=== PATIENT | female | born 1980 | race Caucasian/White ===

== ENCOUNTER 2016-08-12 05:04 | Inpatient (IN) | payer OTHER ==
[~2016-08-12] VITALS: Ht 157.5 cm; Wt 54.4 kg
[~2016-08-12 05:04] MED LIST: ABILIFY15 MG PO; AMBIEN10 MG PO; ATIVAN2 MG PO; CLINDAMYCIN HC150 MG PO; CLINDAMYCIN HC300 MG PO; DEPAKOTE500 MG PO; DIAZEPAM5 MG PO; INDOCIN25 MG PO; METHADONE5 MG PO; NOHOMEMEDS; NORCO 7.5/321 TABLET PO; PAXIL CR37.5 MG PO; PERCOCET 5/31 TABLET PO; PROMETHAZINE HC50 M1 PO; VALIUM10 MG PO; ZOLOFT50 MG PO
[2016-08-12 06:45] LABS: MCH 31.3 PG (29.0-34.0); MCHC 34.6 G/DL (30.0-36.0); MCV 90.5 FL (83-99); MEAN PLAT.VOLUME 10.3 uM^3 (9.5-12.4); PLATELET COUNT 240 K/uL (156-360); RBC DIS.WIDTH-CV 12.6 % (11.8-14.6); RED BLOOD COUNT 4.09 M/uL (3.80-5.20); WHITE BLOOD COUNT 9.3 K/uL (4.1-10.2)
[2016-08-12 07:17] LABS: ANION GAP 10 MEQ/L (2-14); CHLORIDE 103 MEQ/L (99-109); POTASSIUM 3.7 MEQ/L (3.7-5.4); SAMPLE HEMOLYSIS CHECK 0; SAMPLE ICTERIC CHECK 0; SAMPLE LIPEMIA CHECK 0; SODIUM 137 MEQ/L (136-147); TOTAL BILIRUBIN 0.8 MG/DL (0.0-1.0)
[2016-08-12 07:23] LABS: ALKALINE PHOSPHATASE 55 IU/L (3-129); GFR ESTIMATE (CALCULATED) > 59 mL/min/; GLUCOSE 88 mg/dL (70-99); SERUM ETHYL ALCOHOL 10 mg/dL; UREA NITROGEN (BUN) 17 mg/dL (9-23)
[2016-08-12 08:28] LABS: ADD MIUA? NO; BILIRUBIN NEGATIVE; BLOOD NEGATIVE; COLOR DK YELLOW ((YELLOW)); GLUCOSE (STRIP) NEGATIVE; INTERNAL CONTROL VALID? YES; KETONES NEGATIVE; LEUKOCYTES NEGATIVE; NITRITE NEGATIVE; PROTEIN (STRIP) 30; SPECIFIC GRAVITY 1.034 (1.000-1.030); UCUL ADDED? NO
[2016-08-12 08:39] LABS: AMPHETAMINE NEGATIVE (500 ng/mL); BENZODIAZEPINES PRESUMPTIVE POSITIVE (150 ng/mL); COCAINE PRESUMPTIVE POSITIVE (150 ng/mL); METHAMPHETAMINE NEGATIVE (500 ng/mL); OPIATES (MORPHINE) PRESUMPTIVE POSITIVE (100 ng/mL); PHENCYCLIDINE NEGATIVE (25 ng/mL); THC CANNABINOIDS PRESUMPTIVE POSITIVE (50 ng/mL)
[2016-08-12 08:40] LABS: ADD MEDTOX COMMENT Y; BARBITURATES NEGATIVE (200 ng/mL); INTERNAL CONTROLS VALID? YES; METHADONE NEGATIVE (200 ng/mL); OXYCODONE NEGATIVE (100 ng/mL); PROPOXYPHENE NEGATIVE (300 ng/mL); TRICYCLIC ANTIDEPRESSANTS NEGATIVE (300 ng/mL)
[2016-08-12 09:38] LABS: BENZODIAZEPINES QUANT VALUE 0 NG/ML
[2016-08-12 09:41] LABS: BENZODIAZEPINES, URINE SCREEN Negative (200 ng/mL)
[2016-08-12] MEDS ORDERED: ROBITUSSIN100 MG/5 M PO (10:16)
[2016-08-12 10:54] VITALS: BP 119/62
== END 2016-08-12 13:03 | disposition home or self-care (01) | DRG 881 ==
LOC: EME 05:04 → EDOF 09:30 → 1WEST 11:30
PROVIDERS: Emergency Medicine
DX: F32.9 Major depressive disorder, single episode, unspecified (principal); F14.10 Cocaine abuse, uncomplicated; F11.10 Opioid abuse, uncomplicated; F17.210 Nicotine dependence, cigarettes, uncomplicated
CPT/HCPCS: 80053; 81003; 84703; 84999; 85027; 90839; 99281; 99285; G0480

== ENCOUNTER 2017-02-10 02:38 | Emergency (ER) | payer OTHER ==
[~2017-02-10] VITALS: Ht 160 cm; Wt 55.0 kg
[~2017-02-10 02:38] MED LIST changes: +ROBITUSSIN100 MG/5 M PO
[2017-02-10 03:10] LABS: HEMATOCRIT 37.5 % (36.0-46.0); MCH 31.4 PG (29.0-34.0); MCHC 34.1 G/DL (30.0-36.0); MCV 92.1 FL (83-99); MEAN PLAT.VOLUME 9.8 uM^3 (9.5-12.4); PLATELET COUNT 224 K/uL (156-360); RBC DIS.WIDTH-CV 13.1 % (11.8-14.6); RBC DIS.WIDTH-SD 44.2 % (39-53); RED BLOOD COUNT 4.07 M/uL (3.80-5.20); WHITE BLOOD COUNT 8.7 K/uL (4.1-10.2)
[2017-02-10 03:23] LABS: CHLORIDE 104 mEq/L (99-109); POTASSIUM 4.1 mEq/L (3.7-5.4); SODIUM 139 mEq/L (136-147)
[2017-02-10 03:25] LABS: GLUCOSE 73 mg/dL (70-99)
[2017-02-10 03:26] LABS: ANION GAP 13 MEQ/L (2-14)
[2017-02-10 03:27] LABS: TOTAL BILIRUBIN 0.2 mg/dL (0.0-1.0)
[2017-02-10 03:29] LABS: ALKALINE PHOSPHATASE 56 IU/L (3-129); GFR ESTIMATE (CALCULATED) > 59 mL/min/
[2017-02-10 03:30] LABS: UREA NITROGEN (BUN) 18 mg/dL (9-23)
[2017-02-10 03:32] LABS: CREATINE KINASE 120 IU/L (1-294); LIPASE 41 U/L (1.0-51.0); TOTAL CK 120 IU/L (1-294)
[2017-02-10 03:39] LABS: CK-MB 1.7 ng/mL (0.0-4.9)
[2017-02-10] MEDS ORDERED: CLONAZEPAM1 MG PO (05:02)
[2017-02-10] MEDS ORDERED: DEPAKOTE500 MG PO (05:02)
[2017-02-10 05:36] VITALS: BP 122/80
== END 2017-02-10 05:37 | disposition home or self-care (01) ==
LOC: EME → EDBD 02:38 → EME 02:38
PROVIDERS: Emergency Medicine
DX: R56.9 Unspecified convulsions (principal); F31.9 Bipolar disorder, unspecified; F17.200 Nicotine dependence, unspecified, uncomplicated; K21.9 Gastro-esophageal reflux disease without esophagitis; Z88.0 Allergy status to penicillin
CPT/HCPCS: 80053; 80164; 81003; 82550; 82553; 83690; 85027; 99281; 99285; J1885; J2060; J2250; J7030

== ENCOUNTER 2017-12-06 03:53 | Emergency (ER) | payer OTHER ==
[~2017-12-06] VITALS: Ht 160 cm; Wt 50.5 kg
[~2017-12-06 03:53] MED LIST changes: +CLONAZEPAM1 MG PO
[2017-12-06 05:09] VITALS: BP 136/87
== END 2017-12-06 05:10 | disposition home or self-care (01) ==
LOC: EME 03:53
DX: H60.02 Abscess of left external ear (principal); R21 Rash and other nonspecific skin eruption; F17.200 Nicotine dependence, unspecified, uncomplicated; Z90.49 Acquired absence of other specified parts of digestive tract; Z88.0 Allergy status to penicillin; Z88.5 Allergy status to narcotic agent; Z88.8 Allergy status to other drugs, medicaments and biological substances

== ENCOUNTER 2017-12-13 23:01 | Emergency (ER) | payer OTHER ==
[~2017-12-13] VITALS: Ht 160 cm; Wt 49.3 kg
[2017-12-13] MEDS ORDERED: BACTROBAN OINTM22 GM TP (23:54)
[2017-12-13] MEDS ORDERED: VIBRAMYCIN100 MG PO (23:54)
[2017-12-13] MEDS ORDERED: VISTARIL50 MG PO (23:56)
[2017-12-14 00:17] VITALS: BP 115/96
== END 2017-12-14 00:25 | disposition home or self-care (01) ==
LOC: EME 23:01
DX: L73.9 Follicular disorder, unspecified (principal); L03.90 Cellulitis, unspecified; Z88.5 Allergy status to narcotic agent; Z88.0 Allergy status to penicillin; Z88.8 Allergy status to other drugs, medicaments and biological substances
CPT/HCPCS: 99281; 99284